=== PATIENT | female | born 1950 ===

== ENCOUNTER 2016-07-06 21:05 | Inpatient (IN) | payer OTHER ==
[2016-07-06 21:05] VITALS: BMI 40.0
[2016-07-06] MEDS ORDERED: Sodium Chloride 0.9% 1,000 ML IV STA (21:19)
[2016-07-06] MEDS ORDERED: Sodium Chloride 0.9% 500 ML IV STA (21:28)
[2016-07-06 21:57] LABS: VENOUS BLOOD GAS BASE EXCESS 3.9 mmol/L (0.0-2.0); VENOUS BLOOD GAS PCO2 58 mmHg (40-60); VENOUS BLOOD PH 7.34 (7.32-7.43)
[2016-07-06 22:08] LABS: BASO % 0.2 % (0.0-2.0); EOS % 0.4 % (0.0-4.0); HEMATOCRIT 36.5 % (34.0-47.0); LYMPH # 1.5 K/uL (1.0-4.3); LYMPH % 12.8 % (20.0-40.0); MEAN CELL VOLUME 88.3 fl (81.0-99.0); MEAN CORPUSCULAR HGB CONC 30.5 g/dL (33.0-37.0); MEAN PLATELET VOLUME 8.9 fl (7.2-11.7); MONO # 1.1 K/uL (0.0-0.8); MONO % 9.4 % (0.0-10.0); NEUT # 8.8 K/uL (1.8-7.0); NEUT % 77.2 % (50.0-75.0); RED CELL DISTRIBUTION WIDTH 21.8 % (11.5-14.5); WHITE BLOOD COUNT 11.4 K/uL (4.8-10.8)
[2016-07-06 22:26] LABS: ALB/GLOB RATIO 1.1 (1.0-2.1); BILIRUBIN,TOTAL 0.7 mg/dl (0.2-1.3); CALCIUM 8.2 mg/dL (8.4-10.2); MAGNESIUM 1.8 MG/DL (1.6-2.3); PHOSPHOROUS 3.9 mg/dl (2.5-4.5); POTASSIUM 3.8 MMOL/L (3.6-5.0); TOTAL PROTEIN 6.6 G/DL (6.3-8.2)
[2016-07-06 22:30] LABS: PARTIAL THROMBOPLASTIN TIME 27.7 SECONDS (23.3-32.5)
--- NOTE | 2016-07-06 22:32 | ED PDOC ---
HPI:Nausea, Vomiting, Diarrhea Time Seen by Provider: 07/06/16 21:18 Chief Complaint (Nursing): GI Problem Chief Complaint (Provider): Vomiting History Per: Patient, EMS History/Exam Limitations: no limitations Onset/Duration Of Symptoms: Days (x4) Current Symptoms Are (Timing): Still Present Have you had recent travel within the past 21 days to any of the following countries: [place], [place], [place] or [place]?: No Associated Symptoms: Vomiting (intractable, non-bloody, unable to tolerate PO), Other (generalized weakness; no shortness of breath, abdominal pain). denies: Fever, Chills, Diarrhea, Chest Pain, Constipation Additional Complaint(s): Nicolasa Delong is a 65 year old female, with a pat medical history inclusive of CAD (s/p [place] and implanted pacemaker/defibrillator), CHF, atrial fibrillation, HTN, hypercholesterolemia, and diabetes, who presents to the ED on 07/06/16, via EMS, for the evaluation of intractable, non-bloody vomiting that she has experienced x4 days. Associated feelings of generalized weakness also reported as well as an inability to tolerate both solids/liquids PO, though she has still been attempting to take her usual medications. Denies fever, chills, chest pain, shortness of breath, abdominal pain, diarrhea or constipation. Patient reports feeling mildly improved s/p EMS administration of Zofran 4mg in the field. Of note, patient reports having started a new diabetic medication Byetta 4 days ago per the direction of her new PMD Dr. John Hawkins. Past Medical History Reviewed: Historical Data, Nursing Documentation, Vital Signs Vital Signs: Last Vital Signs Temp 100.8 F H 07/06/16 21:07 Pulse 91 H 07/06/16 21:07 Resp 16 07/06/16 21:07 BP 95/48 L 07/06/16 21:07 Pulse Ox 98 07/06/16 21:07 - Medical History PMH: Asthma, CAD (s/p [place]), Cardia Arrhythmia (A FIB), CHF, Diabetes, Gastritis, HTN, Pneumonia Denies: Chronic Kidney Disease - Surgical History Surgical History: Cholecystectomy, Pacemaker (), Tonsillectomy Denies: CABG, Coronary Stent - Family History Family History: States: Diabetes - Social History Current smoker - smoking cessation education provided: No Alcohol: None Drugs: Denies - Home Medications Home Medications: Ambulatory Orders Medication Instructions Recorded Albuterol HFA [Ventolin HFA 90 1 puff PO Q6H 09/25/13 mcg/actuation (8 g)] Candesartan Cilexetil/Hydroc 1 tab PO DAILY 09/25/13 [Atacand Hct 16 mg-12.5 mg] Carvedilol 1 tab PO DAILY 09/25/13 Fluticasone Propionate [Flovent 1 inh PO DAILY 09/25/13 Diskus] Furosemide [Lasix] 1 tab PO DAILY 09/25/13 Glimepiride [Amaryl] 1 tab PO QAM 09/25/13 Montelukast [Singulair] 1 tab PO DAILY 09/25/13 Pantoprazole Sodium [Protonix] 1 ect PO DAILY 09/25/13 Potassium Chloride [Klor-Con M20] 1 ter PO DAILY 09/25/13 Rivaroxaban [Xarelto] 1 tab PO DAILY 09/25/13 - Allergies Allergies/Adverse Reactions: Allergies Allergy/AdvReac Type Severity Reaction Status Date / Time aspirin Allergy Verified 07/06/16 21:18 Review of Systems ROS Statement: Except As Marked, All Systems Reviewed And Found Negative Constitutional: Positive for: Weakness (generalized). Negative for: Fever, Chills Cardiovascular: Negative for: Chest Pain Respiratory: Negative for: Shortness of Breath Gastrointestinal: Positive for: Vomiting (intractable, non-bloody; unable to tolerate PO). Negative for: Abdominal Pain, Diarrhea, Constipation Physical Exam - Reviewed Nursing Documentation Reviewed: Yes Vital Signs Reviewed: Yes - Physical Exam Appears: Positive for: In Acute Distress (moderate GI distress w/active retching at bedside). Negative for: Well (tired/ill appearing) Head Exam: Positive for: ATRAUMATIC, NORMOCEPHALIC Skin: Positive for: Normal Color, Warm, Dry Eye Exam: Positive for: Normal appearance, PERRL ENT: Positive for: Other (dry mucous membranes). Negative for: Pharyngeal Erythema, Tonsillar Exudate, Tonsillar Swelling Neck: Positive for: Normal, Painless ROM, Supple Cardiovascular/Chest: Positive for: Edema (trace b/l LE), Irregularly Irregular. Negative for: Murmur Respiratory: Positive for: Normal Breath Sounds. Negative for: Rales, Rhonchi, Wheezing, Respiratory Distress Gastrointestinal/Abdominal: Positive for: Normal Exam (obese), Soft. Negative for: Tenderness, Mass, Guarding, Rebound Extremity: Positive for: Normal ROM. Negative for: Calf Tenderness Neurologic/Psych: Positive for: Alert, Oriented (x3). Negative for: Motor/ Sensory Deficits - Laboratory Results Result Diagrams: 07/07/16 05:05 07/07/16 05:05 - ECG O2 Sat by Pulse Oximetry: 98 (RA) Pulse Ox Interpretation: Normal - Critical Care Total Time (In Min): 30 Documented Critical Care: Time excludes all time spent performint seperately billable procedures Medical Decision Making Medical Decision Makin:18 Initial Impression: vomiting, dehydration Differential diagnoses include but are not limited to gastroenteritis, pancreatitis, dehydration, electrolyte abnormality, SBO, adverse medication reaction, sepsis. Initial Plan: * EKG * CXR * CT A/P w/o contrast * VBG * Labs * Lipase * Magnesium * Phosphorus * Troponin I * PTT * PT * Procalcitonin Serum * Glucoses/Blood/POC * Urinalysis * Blood Culture * Urine Culture * IV NS 1000ml at 2000mls/hr * IV NS 500ml at 500mls/hr * Tylenol 975mg pO * Vital Signs Q15 min * Reevaluation Patient will be hospitalized. Pending ED workup. 21:57 Patient meets SIRS criterion with a VBG lactic acid level of 1.9 and a hypotensive blood pressure of 84 systolic. However needs cautious fluid hydration due to h/o CHF. Lactic acid 1.9 on VBG Labs demonstrated renal failure. Ordered CT with NO contrast abd pelvis. Accession No. : [id number] Patient Name / ID : JULIETH VIDAL / [id number] Exam Date : 07/06/2016 23:11:28 ( Approved ) Study Comment : Sex / Age : F / 65Y Creator : Roshni Dukes MD Dictator : [employer] Captain : Underwriting Account Representative : Roshni Dukes MD Approver2 : Report Date : 07/06/2016 23:36:00 My Comment : [facility] Division of Radiology [address] [address] Tel. no. Patient Name: NICOLASA DELONG Pt. Address: [address] [place] [address] Rec #: [id number] [place] [address]: Murray BLAKE, Kenya Shetty Pt Order Location: [facility] : 1950 Female Age: 65 Order #: [id number] Reason for exam: vomiting and fever CT Scan ABD PELVIS W/O PO OR IV CONT Exam Date: 07/06/16 This imaging exam was performed at [facility] EXAM: CT Abdomen and Pelvis Without Intravenous Contrast CLINICAL HISTORY: 65 years old, female; Signs and symptoms; Fever and vomiting; Additional info: Vomiting and fever. Sent e. D. Physician doc. With request TECHNIQUE: Axial computed tomography images of the abdomen and pelvis without intravenous contrast. This CT exam was performed using one or more of the following dose reduction techniques: automated exposure control, adjustment of the mA and/or kV according to patient size, and/or use of iterative reconstruction technique. Coronal and sagittal reformatted images were created and reviewed. COMPARISON: No relevant prior studies available. FINDINGS: Atelectasis/scarring at the lung bases. Cardiomegaly. Status post cholecystectomy. The unenhanced liver, spleen, pancreas and adrenal glands demonstrate no acute abnormalities. No obstructing renal calculus or hydronephrosis. Atherosclerosis. Evaluation of bowel significantly limited without enteric contrast. Normal-caliber appendix. No bowel obstruction. Diverticulosis. Evidence of subtle increased mesenteric markings adjacent to colonic diverticula in the region of the sigmoid colon concerning for early/mild diverticulitis. Correlate clinically. No ascites. No free air. Degenerative changes. IMPRESSION: Evidence of increased mesenteric markings adjacent to colonic diverticula in the region of the sigmoid colon concerning for early/mild diverticulitis. Correlate clinically. Please see additional details/findings as above. Correlate clinically. Followup as warranted. Dictated By: Roshni Dukes MD Dictated Date/Time: 07/06/16 2336 Signed By: Roshni Dukes Date Signed: 2335 Transcribed By: AYESHA Transcribe Date/Time : 07/06/162335 MESHAD/MADDISON 12am Pt reports feeling better except for headache, which she reports now started this morning. Head CT ordered Labs c/w severe sepsis (Cr>2, + SIRS, +source of diverticulitis). IV antibiotics given. ZANE Jacob Hospitalist for ICU ZANE Cai [facility] for PMD Dr Hawkins. ZANE pt findings and plan of care. Scribe Attestation: Documented by Kristy Reynolds, acting as a scribe for Kenya Gao MD. Provider Scribe Attestation: All medical record entries made by the Scribe were at my direction and personally dictated by me. I have reviewed the chart and agree that the record accurately reflects my personal performance of the history, physical exam, medical decision making, and the department course for this patient. I have also personally directed, reviewed, and agree with the discharge instructions and disposition. Disposition - Clinical Impression Clinical Impression: Diverticulitis, Sepsis Discussed With Dr.: Jere Cai Doctor Will See Patient In The: Hospital Counseled Patient/Family Regarding: Studies Performed, Diagnosis - Disposition Disposition Time: 23:55 Condition: FAIR - Pt Status Changed To: Hospital Disposition Of: Inpatient - Admit Certification Admit to Inpatient:: After my assessment, the patient will require hospitalization for at least two midnights. This is because of the severity of symptoms shown, intensity of services needed, and/or the medical risk in this patient being treated as an outpatient. - POA Present On Arrival: None
[2016-07-06 22:42] LABS: TROPONIN I 0.016 ng/mL (0.00-0.120)
--- NOTE | 2016-07-06 23:36 | CT ---
EXAM: CT Abdomen and Pelvis Without Intravenous Contrast CLINICAL HISTORY: 65 years old, female; Signs and symptoms; Fever and vomiting; Additional info: Vomiting and fever. Sent e. D. Physician doc. With request TECHNIQUE: Axial computed tomography images of the abdomen and pelvis without intravenous contrast. This CT exam was performed using one or more of the following dose reduction techniques: automated exposure control, adjustment of the mA and/or kV according to patient size, and/or use of iterative reconstruction technique. Coronal and sagittal reformatted images were created and reviewed. COMPARISON: No relevant prior studies available. FINDINGS: Atelectasis/scarring at the lung bases. Cardiomegaly. Status post cholecystectomy. The unenhanced liver, spleen, pancreas and adrenal glands demonstrate no acute abnormalities. No obstructing renal calculus or hydronephrosis. Atherosclerosis. Evaluation of bowel significantly limited without enteric contrast. Normal-caliber appendix. No bowel obstruction. Diverticulosis. Evidence of subtle increased mesenteric markings adjacent to colonic diverticula in the region of the sigmoid colon concerning for early/mild diverticulitis. Correlate clinically. No ascites. No free air. Degenerative changes. IMPRESSION: Evidence of increased mesenteric markings adjacent to colonic diverticula in the region of the sigmoid colon concerning for early/mild diverticulitis. Correlate clinically. Please see additional details/findings as above. Correlate clinically. Followup as warranted.
[2016-07-06] MEDS ORDERED: metroNIDAZOLE 500mg/100ml NS 100 ML IVPB STA (23:58)
[2016-07-06] MEDS ORDERED: Ciprofloxacin 400mg/200ml D5W 200 ML IVPB STA (23:58)
[2016-07-07] MEDS ORDERED: Sodium Chloride 0.9% 500 ML IV STA (00:09)
--- NOTE | 2016-07-07 00:32 | CP.PCM.CON ---
History of Present Illness - History of Present Illness History of Present Illness: CC/Reason for ICU: diverticulitis/sepsis, hypotension, ARF HPI: This is a 65 y/o female with MHx significant for CAD, CHF/cardiomyopathy ( with ICD), A fib on Rivaroxaban, HTN, HLD, and DM2 who comes in 3 days of persistent n/v (nb/nb), inability to tolerate PO, and generalize weakness. She has had fevers here in the ER and has c/o chills for the past few days. Denies CP/SOB. Denies abd pain or diarrhea or blood in stool. Has no other c/c at this time. Did note that symptoms seemed to start after she started Byetta several days ago for her DM2. ROS: 14 systems reviewed, negative other than HPI MHx: CAD, CHF/cardiomyopathy (with ICD), A fib on Rivaroxaban, HTN, HLD, and DM2 SHx: Choelcystectomy, ICD Allergies: ASA Medications: As per med rec Family/Social Hx: Reviewed, no relevant findings Past Patient History - Past Medical History & Family History Past Medical History?: Yes - Past Social History Alcohol: None Drugs: Denies - CARDIAC Hx Cardia Arrhythmia: Yes (A FIB) Hx Congestive Heart Failure: Yes Hx Hypertension: Yes Hx Pacemaker: Yes () - PULMONARY Hx Asthma: Yes Hx Pneumonia: Yes - NEUROLOGICAL Hx Neurological Disorder: Yes HX Cerebrovascular Accident: Yes - HEENT Hx HEENT Problems: No - RENAL Hx Chronic Kidney Disease: No - ENDOCRINE/METABOLIC Hx Endocrine Disorders: Yes Hx Diabetes Mellitus Type 2: Yes - HEMATOLOGICAL/ONCOLOGICAL Hx Blood Disorders: No - INTEGUMENTARY Hx Dermatological Problems: No - MUSCULOSKELETAL/RHEUMATOLOGICAL Hx Musculoskeletal Disorders: Yes Hx Back Pain: Yes Hx Osteoarthritis: Yes Hx Unsteady Gait: Yes (USES CANE) - GASTROINTESTINAL Hx Gastritis: Yes - GENITOURINARY/GYNECOLOGICAL Hx Genitourinary Disorders: No - PSYCHIATRIC Hx Psychophysiologic Disorder: No Hx Substance Use: No - SURGICAL HISTORY Hx Cholecystectomy: Yes Hx Coronary Artery Bypass Graft: No Hx Coronary Stent: No Hx Tonsillectomy: Yes - ANESTHESIA Hx Anesthesia: Yes Hx Anesthesia Reactions: No Hx Malignant Hyperthermia: No Meds Allergies/Adverse Reactions: Allergies Allergy/AdvReac Type Severity Reaction Status Date / Time aspirin Allergy Verified 07/06/16 21:18 - Medications Medications: Current Medications Acetaminophen (Tylenol 325mg Tab) 975 mg PO ONCE PRN PRN Reason: Fever >100.4 F Acetaminophen (Tylenol 325mg Tab) 650 mg PO Q6H PRN PRN Reason: Fever >100.4 F Home Med (Pantoprazole Sodium [Protonix]) 1 ect PO DAILY NADIA Ciprofloxacin (Cipro 400mg/200ml Dsw) 200 mls @ 200 mls/hr IVPB STAT STA Stop: 07/07/16 00:57 Last Admin: 07/07/16 00:17 Dose: 200 mls/hr Metronidazole (Flagyl 500mg/100ml Ns) 100 mls @ 100 mls/hr IVPB STAT STA Stop: 07/07/16 00:57 Sodium Chloride (Sodium Chloride 0.9%) 500 mls @ 500 mls/hr IV .Q1H STA Stop: 07/07/16 01:08 Last Admin: 07/07/16 00:18 Dose: 500 mls/hr Ciprofloxacin (Cipro 200mg/100ml D5w) 100 mls @ 100 mls/hr IVPB DAILY NADIA Metronidazole (Flagyl 500mg/100ml Ns) 100 mls @ 100 mls/hr IVPB Q8 NADIA Insulin Human Lispro (Humalog) 0 units SC ACHS NADIA PRN Reason: Protocol Montelukast Sodium (Singulair) 10 mg PO DAILY NADIA Ondansetron HCl (Zofran Inj) 4 mg IVP Q6H PRN PRN Reason: Nausea/Vomiting Physical Exam - Constitutional Appears: No Acute Distress - Head Exam Head Exam: ATRAUMATIC, NORMOCEPHALIC - Eye Exam Eye Exam: EOMI, PERRL - ENT Exam ENT Exam: Mucous Membranes Dry - Neck Exam Neck exam: Positive for: Full Rom - Respiratory Exam Respiratory Exam: Clear to Auscultation Bilateral, NORMAL BREATHING PATTERN - Cardiovascular Exam Cardiovascular Exam: REGULAR RHYTHM, +S1, +S2 - GI/Abdominal Exam GI & Abdominal Exam: Normal Bowel Sounds, Soft - Extremities Exam Extremities exam: Positive for: full ROM, normal inspection Additional comments: no edema - Neurological Exam Neurological exam: Alert, CN II-XII Intact, Oriented x3 - Psychiatric Exam Psychiatric exam: Normal Affect, Normal Mood - Skin Skin Exam: Dry, Warm Results - Vital Signs Recent Vital Signs: Last Vital Signs Temp 100.8 F H 07/06/16 21:07 Pulse 91 H 07/06/16 21:07 Resp 16 07/06/16 21:07 BP 95/48 L 07/06/16 21:07 Pulse Ox 98 07/07/16 00:14 - Labs Result Diagrams: 07/06/16 21:57 07/06/16 21:57 - EKG Data EKG comments: Pending - Imaging and Cardiology CT scan - abdomen Status: Report reviewed by me (?diverticulitis) Assessment & Plan (1) Diverticulitis Assessment and Plan: 65 y/o female with multiple medical conditions presenting with possible diverticulitis and sepsis, also with ARF likely 2/2 vol depletion. 1) Diverticulitis and Sepsis -ICU admission -Continue renally dosed cipro and continue flagyl IV -Pain control PRN -Tylenol for fever 2) ARF -- possibly due to n/v/vol dep due to div and sepsis -Cont IVF for now, but with close watch given CHF history -UA/lytes/Cr -Repeat BMP in AM -if not improved with above measures, further w/u and renal consult 3) DM2 -Clear liqs only now -Accucheck achs + SSI -Resume other DM medications once with stable PO intake 4) A fib -- stable -Holding coreg for low BP -Holding rivaroxaban o/n given ARF, resume based on renal function 5) DVT PPx -- SCDs only given ARF and having been on Xarelto Status: Acute (2) Sepsis Status: Acute (3) Acute renal failure (ARF) Status: Acute (4) DM2 (diabetes mellitus, type 2) Status: Acute (5) A-fib Status: Acute (6) DVT prophylaxis Status: Acute
[2016-07-07 00:54] LABS: VENOUS BLOOD GAS BASE EXCESS 2.8 mmol/L (0.0-2.0); VENOUS BLOOD GAS PCO2 63 mmHg (40-60)
--- NOTE | 2016-07-07 02:43 | CT ---
EXAM: CT Head Without Intravenous Contrast CLINICAL HISTORY: 65 years old, female; Pain and signs and symptoms; Dizziness; Headache; Headache not specified; Additional info: Dizziness headache TECHNIQUE: Axial computed tomography images of the head/brain without intravenous contrast. This CT exam was performed using one or more of the following dose reduction techniques: automated exposure control, adjustment of the mA and/or kV according to patient size, and/or use of iterative reconstruction technique. Coronal and sagittal reformatted images were created and reviewed. EXAM DATE/TIME: 07/07/2016 12:08 AM COMPARISON: No relevant prior studies available. FINDINGS: There is mild atrophy. There is mild chronic small vessel ischemic disease. There is no hemorrhage or edema. No significant fluid in the sinuses. The osseous structures are normal. IMPRESSION: No acute findings.
[2016-07-07] MEDS ORDERED: Sodium Chloride 0.9% 500 ML IV SCH (05:15)
[2016-07-07 05:46] LABS: BASO % 0.2 % (0.0-2.0); EOS # 0.1 K/uL (0.0-0.7); EOS % 0.5 % (0.0-4.0); HEMATOCRIT 33.9 % (34.0-47.0); LYMPH # 1.5 K/uL (1.0-4.3); LYMPH % 16.5 % (20.0-40.0); MEAN CELL VOLUME 88.5 fl (81.0-99.0); MEAN CORPUSCULAR HEMOGLOBIN 27.3 pg (27.0-31.0); MEAN CORPUSCULAR HGB CONC 30.8 g/dL (33.0-37.0); MEAN PLATELET VOLUME 8.8 fl (7.2-11.7); MONO # 1.1 K/uL (0.0-0.8); MONO % 12.3 % (0.0-10.0); NEUT # 6.5 K/uL (1.8-7.0); NEUT % 70.5 % (50.0-75.0); NRBC % 0.1 % (0.0-0.0); RED CELL DISTRIBUTION WIDTH 21.6 % (11.5-14.5); WHITE BLOOD COUNT 9.2 K/uL (4.8-10.8)
[2016-07-07 05:53] LABS: ALB/GLOB RATIO 1.1 (1.0-2.1); BILIRUBIN,TOTAL 0.5 mg/dl (0.2-1.3); CALCIUM 7.6 mg/dL (8.4-10.2); POTASSIUM 3.5 MMOL/L (3.6-5.0); TOTAL PROTEIN 5.9 G/DL (6.3-8.2)
[2016-07-07] MEDS: Insulin Lispro (humaLOG) 100 Units/ml Inj SC SCH ×3 (08:15→22:48)
--- NOTE | 2016-07-07 08:48 | CP.PCM.HP ---
<Nancy Griggs - Last Filed: 07/07/16 17:28> History of Present Illness - History of Present Illness History of Present Illness: 65F seen and examined at bedside with attending. Patient admitted last night to ICU for severe sepsis. Pt reports history of developing NBNB N/V and diarrhea after being started on Byetta. She denies any associated sick contacts, fevers, chills, SOB, chest pain/palpitations, dysuria. Pt reports using oxygen at home and CPAP intermittently and at this time is asymptomatic and only c/o mild headache. PMH: AICD, DM, COPD (oxygen requirement), A-flutter/paced PSH: Ismael DOZIERY(2013) ALL: ASA Meds: [place] Present on Admission - Present on Admission Any Indicators Present on Admission: Yes History of Uncontrolled Diabetes: Yes Review of Systems - Review of Systems Review of Systems: As per HPI Past Patient History - Past Medical History & Family History Past Medical History?: Yes - Past Social History Smoking Status: Never Smoked - CARDIAC Hx Atrial Fibrillation: Yes Hx Cardia Arrhythmia: Yes (A FIB) Hx Congestive Heart Failure: Yes Hx Heart Attack: Yes Hx Hypercholesterolemia: Yes Hx Hypertension: Yes Hx Internal Defibrillator: Yes Hx Pacemaker: Yes () - PULMONARY Hx Asthma: Yes Hx Pneumonia: Yes - NEUROLOGICAL Hx Neurological Disorder: Yes - HEENT Hx HEENT Problems: No - RENAL Hx Chronic Kidney Disease: No - ENDOCRINE/METABOLIC Hx Endocrine Disorders: Yes (Diabetes) - HEMATOLOGICAL/ONCOLOGICAL Hx Blood Disorders: No - INTEGUMENTARY Hx Dermatological Problems: No - MUSCULOSKELETAL/RHEUMATOLOGICAL Hx Musculoskeletal Disorders: Yes Hx Back Pain: Yes Hx Falls: No - GASTROINTESTINAL Hx Diverticulitis: Yes Hx Gastritis: Yes Hx Vomiting: Yes - GENITOURINARY/GYNECOLOGICAL Hx Genitourinary Disorders: No - PSYCHIATRIC Hx Psychophysiologic Disorder: No Hx Substance Use: No - SURGICAL HISTORY Hx Cholecystectomy: Yes Hx Coronary Artery Bypass Graft: No Hx Coronary Stent: No Hx Tonsillectomy: Yes - ANESTHESIA Hx Anesthesia: Yes Hx Anesthesia Reactions: No Hx Malignant Hyperthermia: No Meds Allergies/Adverse Reactions: Allergies Allergy/AdvReac Type Severity Reaction Status Date / Time aspirin Allergy Verified 07/06/16 21:18 Physical Exam - Constitutional Appears: Non-toxic, No Acute Distress, Chronically Ill Additional comments: Morbidly Obese - Head Exam Head Exam: ATRAUMATIC, NORMAL INSPECTION - Eye Exam Eye Exam: EOMI, Normal appearance - ENT Exam ENT Exam: Mucous Membranes Dry, Normal Exam - Neck Exam Neck exam: Positive for: Full Rom, Normal Inspection - Respiratory Exam Respiratory Exam: Clear to Auscultation Bilateral, Rales (minimal in b/l bases) , NORMAL BREATHING PATTERN. absent: Wheezes - Cardiovascular Exam Cardiovascular Exam: absent: REGULAR RHYTHM (Paced), JVD - GI/Abdominal Exam GI & Abdominal Exam: Normal Bowel Sounds, Soft. absent: Tenderness - Extremities Exam Extremities exam: Positive for: normal capillary refill. Negative for: normal inspection (color is poor), pedal pulses present (not palpable ) - Neurological Exam Neurological exam: Alert, Oriented x3 - Psychiatric Exam Psychiatric exam: Normal Affect, Normal Mood - Skin Skin Exam: Normal Color, Warm Results - Vital Signs Recent Vital Signs: Last Vital Signs Temp 36.8 C 07/07/16 08:00 Pulse 80 07/07/16 08:00 Resp 20 07/07/16 08:00 BP 98/50 L 07/07/16 08:00 Pulse Ox 98 07/07/16 08:00 - Labs Result Diagrams: 07/07/16 05:05 07/07/16 05:05 Labs: Laboratory Results - last 24 hr 07/07/16 07/07/16 07/07/16 00:45 05:05 06:40 WBC 9.2 RBC 3.83 Hgb 10.4 L Hct 33.9 L MCV 88.5 MCH 27.3 MCHC 30.8 L RDW 21.6 H Plt Count 154 MPV 8.8 Neut % (Auto) 70.5 Lymph % (Auto) 16.5 L [place] % (Auto) 12.3 H Eos % (Auto) 0.5 Baso % (Auto) 0.2 Neut # 6.5 Lymph # 1.5 [place] # 1.1 H Eos # 0.1 Baso # 0.0 pO2 38 VBG pH 7.30 L VBG pCO2 63 H VBG HCO3 26.2 VBG Total CO2 32.9 H VBG O2 Sat (Calc) 72.5 H VBG Base Excess 2.8 H VBG Potassium 3.6 Sodium 138.0 142 Chloride 105.0 101 Glucose 94 Lactate 1.2 FiO2 21.0 Crit Value Called By 333 Blood Gas Notified Time 55 Potassium 3.5 L Carbon Dioxide 28 Anion Gap 17 BUN 53 H Creatinine 3.0 H Est GFR ( Amer) 19 Est GFR (Non-Af Amer) 16 POC Glucose (mg/dL) 92 Random Glucose 91 Calcium 7.6 L Total Bilirubin 0.5 AST 35 ALT 35 Alkaline Phosphatase 63 Total Protein 5.9 L Albumin 3.0 L Globulin 2.8 Albumin/Globulin Ratio 1.1 Venous Blood Potassium 3.6 Assessment & Plan - Assessment and Plan (Free Text) Assessment: 65F admitted for what initially appeared to be a colitis picture and corresponding SAYRA 2/2 to volume depletion on further evaluation most c/w medication related adverse reaction. Patient now feeling much better, afebrile , no leukocytosis, and all symptoms have resolved, however she needs to be monitored until SAYRA has resolved. - Transfer to floor bed - SAYRA: Push PO hydration >> NS@75cc/hr, minimize renal medications - DM: TDD-30U (0.3/kg/day), Levemir 15U, SC, qHS, SSI, Hypoglycemia Bundle, Accu -checks, HELD all PO medications - HTN: Lopressor 50mg, PO, Q12H - A-fib/flutter: rate-controlled, Xarelto - Incentive Spirometry, Q2H - BNP elevated + CXR showing congestion : c/w Lasix, may consider echocardiogram - DVT Prophylaxis: Pt taking Xarelto 20mg, PO, Daily - Diet: Mod CHO <Jere Cai - Last Filed: 07/09/16 23:47> Results - Vital Signs Recent Vital Signs: Last Vital Signs Temp 98.6 F 07/09/16 21:56 Pulse 92 H 07/09/16 21:56 Resp 20 07/09/16 21:56 BP 102/63 07/09/16 21:56 Pulse Ox 99 07/09/16 21:56 - Labs Result Diagrams: 07/09/16 05:30 07/09/16 05:30 Labs: Laboratory Results - last 24 hr 07/08/16 07/09/16 07/09/16 17:18 05:30 05:55 WBC 7.8 RBC 3.91 Hgb 10.7 L Hct 35.0 MCV 89.4 MCH 27.3 MCHC 30.6 L RDW 20.9 H Plt Count 150 Sodium 143 Potassium 3.7 Chloride 103 Carbon Dioxide 31 H Anion Gap 13 BUN 29 H Creatinine 1.5 H Est GFR ( Amer) 42 Est GFR (Non-Af Amer) 35 POC Glucose (mg/dL) 155 H 115 H Random Glucose 130 H Calcium 9.2 07/09/16 07/09/16 11:00 16:25 WBC RBC Hgb Hct MCV MCH MCHC RDW Plt Count Sodium Potassium Chloride Carbon Dioxide Anion Gap BUN Creatinine Est GFR ( Amer) Est GFR (Non-Af Amer) POC Glucose (mg/dL) 135 H 82 Random Glucose Calcium Assessment & Plan - Assessment and Plan (Free Text) Plan: I was present during evaluation and personally examined patient and discussed with Dr Griggs re plans of care and management. Jere Cai M.D. I
[2016-07-07] MEDS ORDERED: metroNIDAZOLE 500mg/100ml NS 100 ML IVPB SCH (09:00)
[2016-07-07] MEDS ORDERED: Pantoprazole 40 mg EC Tab PO SCH (09:00)
[2016-07-07] MEDS ORDERED: PANTOPRAZOLE SODIUM PO SCH (09:00)
[2016-07-07] MEDS ORDERED: Glucagon Recombinant 1 mg Inj IM PRN (10:44)
[2016-07-07] MEDS ORDERED: Dextrose 50% SYRINGE Inj (50 ml) IV PRN (10:44)
--- NOTE | 2016-07-07 10:51 | CP.CCUPN ---
CCU Subjective - Physician Review Subjective (Free Text): [employer] IN[employer]CTOR PROGRESS NOTE Patient examined, interim events reviewed: BP levels still borderline low, but mental status remains intact, has had multiple episodes of diarrhea, denies any new abdominal pain, denies any nausea , no vomiting, afebrile overnight since admission. T max 100.8F on admission noted. Cardiac rhythm remains paced at 80/min, denies any CP. Vitals now: Afebrile, 80, 95/46, 16, 98% SPO2 on NC. On IVFs at 75 ml/hr, ate full breakfast tray. ROS: as above. No other pertinent neg or positives on 12 system review. PHSFH: All other historical nursing and physician notes reviewed with no relevant information found that contributes to current medical problems. No other distress noted: EXAM- HEENT: no icterus, pupils equal and reactive NECK: no visible JVD, supple, carotids equal upstroke bilat/no bruits CHEST: decreased BS bases, no wheezes audible HEART: regular, distant, S1S2, no murmur audible, no rubs. ABD: soft, obese, no increased distention, no focal tenderness, no HSM. BS hypoactive, EXT: trace leg edema, no peripheral/ digital cyanosis, no calf tenderness or palpable cords, distal pulses intact and symmetrical NEURO: +tone, no focal motor deficits. SKIN: no rashes LABS: WBC= 9.2 HGB=10.4 PLTs= 154K Na= 142 K= 3.5 HCO3=28 BUN/Cr= 53/3.0 BS= 91 Lipase = 311 ( CTAP: unenhanced Pancreas was unremarkable) 7.30/63/38 72% satn Trops negative Lactate= 1.2 MAJOR PROBLEMS NOW: 1. Multiple constitutional symptoms reported: ?? 2 Byetta adverse effects 2. Azotemia / Dehydration, r/o SAYRA- ATN 3. r/o Sigmoid Diverticulitis 4. Chronic Disease Anemia PLAN: 1. IVF hydration, stable, non-elevated lactate levels noted despite borderline BP levels. 2. Empiric abx coverage noted. Procalcitonin also ordered from ER. 3. Check old medical records for any h/o CKD. Check Renal US, urine spot lytes , ECHO. 4. Consider surgical eval. 5. Repeat lipase levels, US Pancreas. 6. Stable for telemetry bed for further observation or mgmt.
[2016-07-07] MEDS ORDERED: Sodium Chloride 0.9% 500 ML IV ONE ×2 (10:52→10:53)
--- NOTE | 2016-07-07 11:28 | RAD ---
HISTORY: Sepsis Patient COMPARISON: No prior. FINDINGS: LUNGS: There is pulmonary venous congestion. There is no focal consolidation. PLEURA: No significant pleural effusion identified, no pneumothorax apparent. CARDIOVASCULAR: The heart is normal in size. There is a left-sided transvenous permanent pacing device. OSSEOUS STRUCTURES: No significant abnormalities. VISUALIZED UPPER ABDOMEN: Normal. OTHER FINDINGS: None. IMPRESSION: Pulmonary venous congestion. No active pulmonary disease.
--- NOTE | 2016-07-07 15:50 | US ---
HISTORY: Diverticulitis, ARF COMPARISON: None. TECHNIQUE: Sonographic evaluation of the abdomen. FINDINGS: LIVER: Measures 20 cm. The liver has a nodular surface and there is heterogeneous hypoechoic echotexture. No mass. No intrahepatic bile duct dilatation. GALLBLADDER: Surgically absent. COMMON BILE DUCT: Measures 4.2 mm. No stones. No dilatation. PANCREAS: Unremarkable as visualized. No mass. No ductal dilatation. RIGHT KIDNEY: Measures 13.0cm. Normal echogenicity. No calculus, mass, or hydronephrosis. LEFT KIDNEY: Measures 11.7cm. Normal echogenicity. No calculus, mass, or hydronephrosis. SPLEEN: Normal in size and contour. No mass. AORTA: No aneurysmal dilatation. IVC: Unremarkable. OTHER FINDINGS: None. IMPRESSION: Hepatomegaly. Nodular heterogeneous echotexture may be related to hepatic cirrhosis.
[2016-07-07] MEDS ORDERED: FLUTICASONE PROPIONATE PO SCH (17:00)
[2016-07-07 17:40] LABS: BASO # 0.1 K/uL (0.0-0.2); BASO % 0.7 % (0.0-2.0); EOS % 0.4 % (0.0-4.0); HEMATOCRIT 35.7 % (34.0-47.0); LYMPH # 1.3 K/uL (1.0-4.3); MEAN CELL VOLUME 89.5 fl (81.0-99.0); MEAN CORPUSCULAR HEMOGLOBIN 27.5 pg (27.0-31.0); MEAN CORPUSCULAR HGB CONC 30.8 g/dL (33.0-37.0); MEAN PLATELET VOLUME 8.7 fl (7.2-11.7); MONO % 9.5 % (0.0-10.0); NEUT # 7.7 K/uL (1.8-7.0); NEUT % 76.4 % (50.0-75.0); NRBC % 0.1 % (0.0-0.0); RED CELL DISTRIBUTION WIDTH 21.7 % (11.5-14.5); WHITE BLOOD COUNT 10.1 K/uL (4.8-10.8)
[2016-07-07 17:50] LABS: CALCIUM 7.9 mg/dL (8.4-10.2); POTASSIUM 3.8 MMOL/L (3.6-5.0)
[2016-07-07 19:13] LABS: RBC URINE 1 /hpf (0-3); URINE BILIRUBIN NEGATIVE (NEGATIVE); URINE BLOOD NEGATIVE (NEGATIVE); URINE COLOR YELLOW (YELLOW); URINE GLUCOSE (UA) NEG (Normal); URINE KETONE TRACE mg/dL (NEGATIVE); URINE LEUKOCYTE ESTERASE TRACE Leu/uL (Negative); URINE PROTEIN NEGATIVE (NEGATIVE); URINE UROBILINOGEN 0.2-1.0 mg/dL (0.2-1.0); WBC URINE 4 /hpf (0-5)
--- NOTE | 2016-07-07 19:32 | CARD ---
APPROVED REPORT EKG Measurement Heart [id number] <Conclusion> Atrial fibrillation with frequent ventricular-paced complexes ST & T wave abnormality, consider anterolateral ischemia Abnormal ECG
[2016-07-07] MEDS ORDERED: Insulin Detemir 100 Units/ml Inj SC SCH (22:00)
[2016-07-07] MEDS: Albuterol HFA 90 mcg/actuation (8 g) IH SCH (23:05)
[2016-07-07] MEDS ORDERED: Potassium Chloride 20 mEq ER Tab PO ONE ×2 (23:30)
--- NOTE | 2016-07-07 23:54 | CP.PCM.PCO ---
Physician Communication Note - Physician Communication Note Physician Communication Note: Xarelto dose changed due to low creatinine clearance.
[2016-07-08] MEDS ORDERED: Ciprofloxacin 200mg/100ml D5W 100 ML IVPB SCH
[2016-07-08] MEDS: Albuterol HFA 90 mcg/actuation (8 g) IH SCH ×5 (05:58→23:40)
[2016-07-08] MEDS: FLUTICASONE IH SCH ×3 (06:00→17:16)
[2016-07-08] MEDS: VILANTEROL IH SCH ×3 (06:00→17:16)
[2016-07-08 07:08] LABS: BASO % 0.2 % (0.0-2.0); EOS % 0.5 % (0.0-4.0); HEMATOCRIT 34.7 % (34.0-47.0); LYMPH % 12.7 % (20.0-40.0); MEAN CORPUSCULAR HEMOGLOBIN 27.2 pg (27.0-31.0); MEAN CORPUSCULAR HGB CONC 30.5 g/dL (33.0-37.0); MEAN PLATELET VOLUME 8.9 fl (7.2-11.7); MONO # 0.9 K/uL (0.0-0.8); MONO % 11.7 % (0.0-10.0); NEUT % 74.9 % (50.0-75.0); NRBC % 0.1 % (0.0-0.0); RED CELL DISTRIBUTION WIDTH 21.5 % (11.5-14.5)
[2016-07-08 07:24] LABS: BILIRUBIN,TOTAL 0.5 mg/dl (0.2-1.3); CALCIUM 7.8 mg/dL (8.4-10.2); POTASSIUM 3.7 MMOL/L (3.6-5.0); TOTAL PROTEIN 6.3 G/DL (6.3-8.2)
[2016-07-08] MEDS: Insulin Lispro (humaLOG) 100 Units/ml Inj SC SCH ×4 (08:26→21:13)
[2016-07-08] MEDS: Pantoprazole 40 mg EC Tab PO SCH (08:33)
[2016-07-08] MEDS ORDERED: RIVAROXABAN 15 MG PO SCH (09:00)
[2016-07-08] MEDS ORDERED: RIVAROXABAN PO SCH (09:00)
[2016-07-08] MEDS ORDERED: POTASSIUM CHLORIDE PO SCH (09:00)
[2016-07-08] MEDS ORDERED: Potassium Chloride 20 mEq ER Tab PO SCH (09:00)
[2016-07-08] MEDS ORDERED: Patient's Own Med (Valsartan/Hydrochlorothiazide [Valsartan-Hctz 320-25 Mg Tab] 1 TAB) PO SCH (09:00)
[2016-07-09] MEDS: Albuterol HFA 90 mcg/actuation (8 g) IH SCH ×4 (05:51→22:56)
[2016-07-09 07:24] LABS: MEAN CELL VOLUME 89.4 fl (81.0-99.0); MEAN CORPUSCULAR HEMOGLOBIN 27.3 pg (27.0-31.0); MEAN CORPUSCULAR HGB CONC 30.6 g/dL (33.0-37.0); RED CELL DISTRIBUTION WIDTH 20.9 % (11.5-14.5); WHITE BLOOD COUNT 7.8 K/uL (4.8-10.8)
[2016-07-09 07:37] LABS: CALCIUM 9.2 mg/dL (8.4-10.2); POTASSIUM 3.7 MMOL/L (3.6-5.0)
[2016-07-09] MEDS: Insulin Lispro (humaLOG) 100 Units/ml Inj SC SCH ×4 (08:16→22:40)
[2016-07-09] MEDS: FLUTICASONE IH SCH ×2 (08:43→16:02)
[2016-07-09] MEDS: VILANTEROL IH SCH ×2 (08:43→16:02)
[2016-07-09] MEDS: Pantoprazole 40 mg EC Tab PO SCH (08:44)
[2016-07-09] MEDS ORDERED: ALENDRONATE 70 MG TAB PO SCH (09:00)
--- NOTE | 2016-07-09 23:54 | CP.PCM.PN ---
Subjective - Date & Time of Evaluation Date of Evaluation: 07/08/16 Time of Evaluation: 09:25 - Subjective Subjective: Patient feels a lot better. able to tolerate some po fluids. accuchecks are slightly elevated. Has mild abdominal pain. BUn and creatinine has improved GFR now atn 35 CT scan showed early mild sigmoid diverticulitis Objective - Vital Signs/Intake and Output Vital Signs (last 24 hours): Temp Pulse Resp BP Pulse Ox 98.6 F 92 H 20 102/63 99 07/09/16 21:56 07/09/16 21:56 07/09/16 21:56 07/09/16 21:56 07/09/16 21:56 - Medications Medications: Current Medications Acetaminophen (Tylenol 325mg Tab) 650 mg PO Q4 PRN PRN Reason: Pain, moderate (4-7) Last Admin: 07/08/16 21:08 Dose: 650 mg Albuterol (Ventolin Hfa 90 Mcg/Actuation (8 G)) 1 puff IH Q6H [facility] Last Admin: 07/09/16 22:56 Dose: 1 puff Alendronate Sodium (Fosamax) 70 mg PO SUN [facility] Last Admin: 07/09/16 08:44 Dose: 70 mg Ciprofloxacin (Cipro) 500 mg PO Q12 [facility] Last Admin: 07/09/16 21:17 Dose: 500 mg Dextrose (Glutose 15) 0 gm PO ONCE PRN; Protocol PRN Reason: Hypoglycemia Protocol Dextrose (Dextrose 50% Inj) 0 ml IV STAT PRN; Protocol PRN Reason: Hyglycemia Protocol Diltiazem HCl (Cardizem) 120 mg PO DAILY [facility] Last Admin: 07/09/16 08:43 Dose: 120 mg Glucagon (Glucagen Diagnostic Kit) 0 mg IM STAT PRN; Protocol PRN Reason: Hypoglycemia Protocol Home Med (Fluticasone/Vilanterol [Breo Ellipta 200-25 Mcg Inh]) 1 each IH BID [facility] Last Admin: 07/09/16 16:02 Dose: 1 each Insulin Human Lispro (Humalog) 0 units SC ACHS [facility] PRN Reason: Protocol Last Admin: 07/09/16 22:40 Dose: Not Given Metronidazole (Flagyl) 500 mg PO Q8 [facility] Last Admin: 07/09/16 16:05 Dose: 500 mg Montelukast Sodium (Singulair) 10 mg PO DAILY [facility] Last Admin: 07/09/16 08:44 Dose: 10 mg Pantoprazole Sodium (Protonix Ec Tab) 40 mg PO DAILY [facility] Last Admin: 07/09/16 08:44 Dose: 40 mg Rivaroxaban (Xarelto) 15 mg PO DIN [facility] Last Admin: 07/09/16 16:01 Dose: 15 mg Sitagliptin Phosphate (Januvia) 50 mg PO DAILY [facility] Valsartan (Diovan) 80 mg PO DAILY [facility] Last Admin: 07/09/16 08:43 Dose: 80 mg - Labs Labs: 07/09/16 05:30 07/09/16 05:30 PT 11.4 SECONDS (9.6-11.2) H 07/06/16 21:57 INR 1.10 (0.92-1.08) H 07/06/16 21:57 APTT 27.7 SECONDS (23.3-32.5) 07/06/16 21:57 - Head Exam Head Exam: NORMAL INSPECTION - Eye Exam Eye Exam: Normal appearance - Respiratory Exam Respiratory Exam: Clear to Ausculation Bilateral - Cardiovascular Exam Cardiovascular Exam: REGULAR RHYTHM - GI/Abdominal Exam GI & Abdominal Exam: Tenderness, Normal Bowel Sounds Additional comments: slight tenderness on the LLQ area. - Neurological Exam Neurological Exam: CN II-XII Intact Assessment and Plan - Assessment and Plan (Free Text) Plan: Cont meds 'startt po cipro flagyl; hydrate will start Januvia in am.
--- NOTE | 2016-07-10 00:08 | CP.PCM.PN ---
Subjective - Date & Time of Evaluation Date of Evaluation: 07/09/16 Time of Evaluation: 11:30 - Subjective Subjective: Patient is feeling better and tolerating po well. Accuchecks are better. Noted significant improvement of BUN and creatinine Has no fever Tolerates advanced diet. Objective - Vital Signs/Intake and Output Vital Signs (last 24 hours): Temp Pulse Resp BP Pulse Ox 98.6 F 92 H 20 102/63 99 07/09/16 21:56 07/09/16 21:56 07/09/16 21:56 07/09/16 21:56 07/09/16 21:56 - Medications Medications: Current Medications Acetaminophen (Tylenol 325mg Tab) 650 mg PO Q4 PRN PRN Reason: Pain, moderate (4-7) Last Admin: 07/08/16 21:08 Dose: 650 mg Albuterol (Ventolin Hfa 90 Mcg/Actuation (8 G)) 1 puff IH Q6H [facility] Last Admin: 07/09/16 22:56 Dose: 1 puff Alendronate Sodium (Fosamax) 70 mg PO SUN [facility] Last Admin: 07/09/16 08:44 Dose: 70 mg Ciprofloxacin (Cipro) 500 mg PO Q12 [facility] Last Admin: 07/09/16 21:17 Dose: 500 mg Dextrose (Glutose 15) 0 gm PO ONCE PRN; Protocol PRN Reason: Hypoglycemia Protocol Dextrose (Dextrose 50% Inj) 0 ml IV STAT PRN; Protocol PRN Reason: Hyglycemia Protocol Diltiazem HCl (Cardizem) 120 mg PO DAILY [facility] Last Admin: 07/09/16 08:43 Dose: 120 mg Glucagon (Glucagen Diagnostic Kit) 0 mg IM STAT PRN; Protocol PRN Reason: Hypoglycemia Protocol Home Med (Fluticasone/Vilanterol [Breo Ellipta 200-25 Mcg Inh]) 1 each IH BID [facility] Last Admin: 07/09/16 16:02 Dose: 1 each Insulin Human Lispro (Humalog) 0 units SC ACHS [facility] PRN Reason: Protocol Last Admin: 07/09/16 22:40 Dose: Not Given Metronidazole (Flagyl) 500 mg PO Q8 [facility] Last Admin: 07/09/16 16:05 Dose: 500 mg Montelukast Sodium (Singulair) 10 mg PO DAILY [facility] Last Admin: 07/09/16 08:44 Dose: 10 mg Pantoprazole Sodium (Protonix Ec Tab) 40 mg PO DAILY [facility] Last Admin: 07/09/16 08:44 Dose: 40 mg Rivaroxaban (Xarelto) 15 mg PO DIN [facility] Last Admin: 07/09/16 16:01 Dose: 15 mg Sitagliptin Phosphate (Januvia) 50 mg PO DAILY [facility] Valsartan (Diovan) 80 mg PO DAILY [facility] Last Admin: 07/09/16 08:43 Dose: 80 mg - Labs Labs: 07/09/16 05:30 07/09/16 05:30 PT 11.4 SECONDS (9.6-11.2) H 07/06/16 21:57 INR 1.10 (0.92-1.08) H 07/06/16 21:57 APTT 27.7 SECONDS (23.3-32.5) 07/06/16 21:57 - Head Exam Head Exam: NORMAL INSPECTION - Eye Exam Eye Exam: Normal appearance - ENT Exam ENT Exam: Mucous Membranes Moist - Respiratory Exam Respiratory Exam: Clear to Ausculation Bilateral, NORMAL BREATHING PATTERN - Cardiovascular Exam Cardiovascular Exam: REGULAR RHYTHM - GI/Abdominal Exam GI & Abdominal Exam: Tenderness, Normal Bowel Sounds Additional comments: slight tenderness on the left lower quadrant - Neurological Exam Neurological Exam: CN II-XII Intact Assessment and Plan - Assessment and Plan (Free Text) Plan: Dx dehydration from excessive vomiting as side effect of medications siogmoid diverticulitis DM 2 l Plan cont meds Hydrate encouraged po fluids' start januvia adjusted dose. cont tx. check labs in AM DC plans in AM.
[2016-07-10] MEDS: Albuterol HFA 90 mcg/actuation (8 g) IH SCH ×2 (06:04→10:32)
[2016-07-10] MEDS: Insulin Lispro (humaLOG) 100 Units/ml Inj SC SCH ×2 (07:34→12:52)
[2016-07-10] MEDS: VILANTEROL IH SCH (09:52)
[2016-07-10] MEDS: FLUTICASONE IH SCH (09:52)
[2016-07-10] MEDS: Pantoprazole 40 mg EC Tab PO SCH (09:53)
--- NOTE | 2016-07-10 10:46 | CP.PCM.DIS ---
Provider - Provider Date of Admission: 07/07/16 00:04 Attending physician: Jere Cai MD Time Spent in preparation of Discharge (in minutes): 45 Hospital Course - Lab Results Lab Results: Micro Results 07/07/16 19:01 Urine,Clean Catch Urine Culture - Final <10,000 CFU/ML. MULTIPLE SPECIES. PROBABLE CONTAMINATION. 07/07/16 08:32 Nose MRSA Culture (Admit) - Final MRSA NOT DETECTED Most Recent Lab Values WBC 7.8 K/uL (4.8-10.8) 07/09/16 05:30 RBC 3.91 Mil/uL (3.80-5.20) 07/09/16 05:30 Hgb 10.7 g/dL (12.0-16.0) L 07/09/16 05:30 Hct 35.0 % (34.0-47.0) 07/09/16 05:30 MCV 89.4 fl (81.0-99.0) 07/09/16 05:30 MCH 27.3 pg (27.0-31.0) 07/09/16 05:30 MCHC 30.6 g/dL (33.0-37.0) L 07/09/16 05:30 RDW 20.9 % (11.5-14.5) H 07/09/16 05:30 Plt Count 150 K/uL (130-400) 07/09/16 05:30 MPV 8.9 fl (7.2-11.7) 07/08/16 05:30 Neut % (Auto) 74.9 % (50.0-75.0) 07/08/16 05:30 Lymph % (Auto) 12.7 % (20.0-40.0) L 07/08/16 05:30 [place] % (Auto) 11.7 % (0.0-10.0) H 07/08/16 05:30 Eos % (Auto) 0.5 % (0.0-4.0) 07/08/16 05:30 Baso % (Auto) 0.2 % (0.0-2.0) 07/08/16 05:30 Neut # 6.0 K/uL (1.8-7.0) 07/08/16 05:30 Lymph # 1.0 K/uL (1.0-4.3) 07/08/16 05:30 [place] # 0.9 K/uL (0.0-0.8) H 07/08/16 05:30 Eos # 0.0 K/uL (0.0-0.7) 07/08/16 05:30 Baso # 0.0 K/uL (0.0-0.2) 07/08/16 05:30 PT 11.4 SECONDS (9.6-11.2) H 07/06/16 21:57 INR 1.10 (0.92-1.08) H 07/06/16 21:57 APTT 27.7 SECONDS (23.3-32.5) 07/06/16 21:57 pO2 38 mm/Hg (30-55) 07/07/16 00:45 VBG pH 7.30 (7.32-7.43) L 07/07/16 00:45 VBG pCO2 63 mmHg (40-60) H 07/07/16 00:45 VBG HCO3 26.2 mmol/L 07/07/16 00:45 VBG Total CO2 32.9 mmol/L (22-28) H 07/07/16 00:45 VBG O2 Sat (Calc) 72.5 % (40-65) H 07/07/16 00:45 VBG Base Excess 2.8 mmol/L (0.0-2.0) H 07/07/16 00:45 VBG Potassium 3.6 mmol/L (3.6-5.2) 07/07/16 00:45 Sodium 138.0 mmol/L (132-148) 07/07/16 00:45 Chloride 105.0 mmol/L (98-107) 07/07/16 00:45 Glucose 94 mg/dL (65-105) 07/07/16 00:45 Lactate 1.2 mmol/L (0.7-2.1) 07/07/16 00:45 FiO2 21.0 % 07/07/16 00:45 Crit Value Called By 333 07/07/16 00:45 Blood Gas Notified Time 55 07/07/16 00:45 Sodium 143 mmol/l (132-148) 07/09/16 05:30 Potassium 3.7 MMOL/L (3.6-5.0) 07/09/16 05:30 Chloride 103 mmol/L (98-107) 07/09/16 05:30 Carbon Dioxide 31 mmol/L (22-30) H 07/09/16 05:30 Anion Gap 13 (10-20) 07/09/16 05:30 BUN 29 mg/dl (7-17) H 07/09/16 05:30 Creatinine 1.5 mg/dL (0.7-1.2) H 07/09/16 05:30 Est GFR ( Amer) 42 07/09/16 05:30 Est GFR (Non-Af Amer) 35 07/09/16 05:30 POC Glucose (mg/dL) 118 mg/dL (65-110) H 07/10/16 05:46 Random Glucose 130 mg/dL (65-105) H 07/09/16 05:30 Calcium 9.2 mg/dL (8.4-10.2) 07/09/16 05:30 Phosphorus 3.9 mg/dl (2.5-4.5) 07/06/16 21:57 Magnesium 1.8 MG/DL (1.6-2.3) 07/06/16 21:57 Total Bilirubin 0.5 mg/dl (0.2-1.3) 07/08/16 05:30 AST 38 U/L (14-36) H 07/08/16 05:30 ALT 33 U/L (9-52) 07/08/16 05:30 Alkaline Phosphatase 61 U/L (38-126) 07/08/16 05:30 Troponin I < 0.0120 ng/mL (0.00-0.120) 07/07/16 17:30 NT-Pro-B Natriuret Pep 964 pg/ml (0-900) H 07/06/16 21:57 Total Protein 6.3 G/DL (6.3-8.2) 07/08/16 05:30 Albumin 3.2 g/dL (3.5-5.0) L 07/08/16 05:30 Globulin 3.1 gm/dL (2.2-3.9) 07/08/16 05:30 Albumin/Globulin Ratio 1.0 (1.0-2.1) 07/08/16 05:30 Lipase 311 U/L (23-300) H 07/06/16 21:57 Procalcitonin 0.05 NG/ML (0.19-0.49) L 07/06/16 21:57 Venous Blood Potassium 3.6 mmol/L (3.6-5.2) 07/07/16 00:45 Urine Color Yellow (YELLOW) 07/07/16 19:01 Urine Clarity Slighty-cloudy (Clear) 07/07/16 19:01 Urine pH 6.0 (5.0-8.0) 07/07/16 19:01 Ur Specific [place] 1.014 (1.003-1.030) 07/07/16 19:01 Urine Protein Negative mg/dL (NEGATIVE) 07/07/16 19:01 Urine Glucose (UA) Neg mg/dL (Normal) 07/07/16 19:01 Urine Ketones Trace mg/dL (NEGATIVE) 07/07/16 19:01 Urine Blood Negative (NEGATIVE) 07/07/16 19:01 Urine Nitrate Negative (NEGATIVE) 07/07/16 19:01 Urine Bilirubin Negative (NEGATIVE) 07/07/16 19:01 Urine Urobilinogen 0.2-1.0 mg/dL (0.2-1.0) 07/07/16 19:01 Ur Leukocyte Esterase Trace Gm/uL (Negative) 07/07/16 19:01 Urine RBC (Auto) 1 /hpf (0-3) 07/07/16 19:01 Urine Microscopic WBC 4 /hpf (0-5) 07/07/16 19:01 Ur Squamous Epith Cells 8 /hpf (0-5) H 07/07/16 19:01 Hyaline Casts 3-5 /hpf (0-2) H 07/07/16 19:01 Ur Random Creatinine 176.0 mg/dL 07/07/16 19:01 Ur Random Sodium 22 meq/L 07/07/16 19:01 Ur Random Potassium 13.0 mmol/L 07/07/16 19:01 - Hospital Course Hospital Course: This is a 65 y/o female admitted of intractable vomiting and dehydration and and mild sepsis. She apparently took few doses of [place] and started vomiting after that. At the ER she was noted to be dehydrated and elevated WBC and BUN. She was noted ot have mild colitis on CT scan Has a hx of A!CD HTN DM 2 COPD. prob sleep apnea? She was placed on iv hydration and antacid and started on liquids and diet was advanced which she tolerated well. She was placed on accucheck and insulin coverage BUN and creatinine improved and started on Januvia on discharge. Advised to follow up with Dr Hawkins. Discharge Exam - Head Exam Head Exam: NORMAL INSPECTION - Eye Exam Eye Exam: Normal appearance - Respiratory Exam Respiratory Exam: NORMAL BREATHING PATTERN - Cardiovascular Exam Cardiovascular Exam: REGULAR RHYTHM - GI/Abdominal Exam GI & Abdominal Exam: Normal Bowel Sounds - Neurological Exam Neurological exam: CN II-XII Intact, Oriented x3 - Psychiatric Exam Psychiatric exam: Normal Mood Discharge Plan - Follow Up Plan Condition: FAIR Disposition: HOME/ ROUTINE Additional Instructions: advised follow up with Dr Hawkins. Rx given for thierno Bojorquez and Flagyl.
[2016-07-10 16:46] VITALS: BP 100/70; PULSE 96; RESP 20; TEMP 97.8; O2SAT 98
== END 2016-07-10 16:54 | disposition home or self-care (01) | DRG 872 ==
LOC: H.ER 21:05 → H.ERHOLD 07-07 00:04 → H.ICU/CCU 07-07 01:58 → H.MEDSURG1 07-07 15:45
PROVIDERS: ADMIT Family Medicine; ATTEND Family Medicine
DX: A41.9 Sepsis, unspecified organism (principal); N17.9 Acute kidney failure, unspecified; I42.9 Cardiomyopathy, unspecified; I48.92 Unspecified atrial flutter; I11.0 Hypertensive heart disease with heart failure; K57.32 Diverticulitis of large intestine without perforation or abscess without bleeding; I50.9 Heart failure, unspecified; I48.91 Unspecified atrial fibrillation; E86.0 Dehydration; Z68.41 Body mass index [BMI] 40.0-44.9, adult; Z99.81 Dependence on supplemental oxygen; J44.9 Chronic obstructive pulmonary disease, unspecified; E78.5 Hyperlipidemia, unspecified; R11.2 Nausea with vomiting, unspecified; R65.20 Severe sepsis without septic shock; E78.00 Pure hypercholesterolemia, unspecified; T38.3X5A Adverse effect of insulin and oral hypoglycemic [antidiabetic] drugs, initial encounter; K52.9 Noninfective gastroenteritis and colitis, unspecified; J45.909 Unspecified asthma, uncomplicated; I25.2 Old myocardial infarction; I25.10 Atherosclerotic heart disease of native coronary artery without angina pectoris; Z95.810 Presence of automatic (implantable) cardiac defibrillator; Z88.6 Allergy status to analgesic agent; K29.70 Gastritis, unspecified, without bleeding; D63.8 Anemia in other chronic diseases classified elsewhere; E66.01 Morbid (severe) obesity due to excess calories; E11.9 Type 2 diabetes mellitus without complications